=== PATIENT | male | born 1975 | race Caucasian/White ===

== ENCOUNTER → 2020-08-15 | Outpatient (REF) ==
--- NOTE | 2020-08-15 13:04 | Diagnostic Imaging Report ---
INDICATION: Medical surveillance COMPARISON: None available TECHNIQUE: Single frontal radiograph of the chest dated 08/15/2020 FINDINGS: The cardiac silhouette is within normal limits in size. No significant pulmonary vascular congestion. The lungs are clear without focal pulmonary opacity. No pleural effusion. No pneumothorax. No acute osseous normality. IMPRESSION: Unremarkable examination without acute cardiopulmonary abnormality. Dictated by: Dictated on workstation # [id number]
== END ==
LOC: OCC 12:52
PROVIDERS: ATTEND Nurse Practitioner Family
DX: Z00.00 Encounter for general adult medical examination without abnormal findings (principal)
CPT/HCPCS: 71045